=== PATIENT | male | born 2000 ===

== ENCOUNTER 2020-01-27 01:25 | Emergency (ER) | payer SELFPAY ==
[~2020-01-27] VITALS: Ht 170.2 cm; Wt 57.0 kg
[2020-01-27 01:35] VITALS: BP 122/78
--- NOTE | 2020-01-27 01:35 | NUR ---
PT BIB [facility] IN POLICE CUSTODY AFTER INGESTING AN UNKNOWN QUANTITY OF PSYCHEDELIC MUSHROOMS TONIGHT. PER EMS, PT ATTACKED GRANDMOTHER AND FATHER, CAUSING MULTIPLE INJURIES, AND CONTINUED TO GET COMBATIVE WITH POLICE. EN ROUTE TO HOSPITAL, PT WAS GIVEN 5 VERSED AND 5 HALDOL IM. PT ARRIVES TO [facility] ED IN 4 POINT RESTRAINTS, AND NONVERBAL TO QUESTIONS. UPON ARRIVAL TO ED, PT PLACED ON VS AND CARDIAC MONITORS. VSS. PT GCS OF 12. TECH AT BS FOR EKG. PT EDUCATED ON ER PROCESS AND POC BUT UNABLE TO VERBALIZE UNDERSTANDING AT THIS TIME. PER POLICE, PT MOTHER ON THE WAY. PT COVERED WITH A WARM BLANKET AT THIS TIME AND IS BEING MONITORED BY THIS RN.
--- NOTE | 2020-01-27 02:09 | NUR ---
Spoke with mother at this time, aware that pt is currently sleeping and closely monitored. Mother is going to go home at this time, we will call her for any problems or concerns, mothers phone number [phone]
[2020-01-27 02:21] LABS: ALBUMIN 3.9 g/dL (3.4-5.0); ANION GAP 5 mmol/L (5-15); CALCIUM 9.1 mg/dL (8.5-10.1); CHLORIDE 110 mmol/L (98-107)
[2020-01-27 02:23] LABS: BASOPHILS # (AUTO) 0.08 x10^3/uL (0-0.3); BASOPHILS % (AUTO) 1 % (0-1); EOSINOPHILS # (AUTO) 0.31 x10^3/uL (0-0.8); EOSINOPHILS % (AUTO) 2 % (1-7); LYMPHOCYTES # (AUTO) 1.13 x10^3/uL (1-6.1); LYMPHOCYTES % (AUTO) 9 % (22-44); MD NO; MEAN CORPUSCULAR HEMOGLOBIN 30.3 pg (27.5-34.5); MEAN CORPUSCULAR VOLUME 92.1 fL (81-97); MEAN PLATELET VOLUME 8.8 fL (7.4-10.4); MONOCYTES # (AUTO) 0.86 x10^3/uL (0-1.4); MONOCYTES % (AUTO) 7 % (2-9); NEUTROPHILS # (AUTO) 10.42 x10^3/uL (1.8-8.0); NEUTROPHILS % (AUTO) 81 % (42-75); PLATELET COUNT 147 x10^3/uL (130-400); RED BLOOD COUNT 4.66 x10^6/uL (4.38-5.82); RED CELL DISTRIBUTION WIDTH 13.3 % (9.4-14.8)
[2020-01-27 02:24] LABS: ALANINE AMINOTRANSFERASE 21 U/L (12-78); ALKALINE PHOSPHATASE 69 U/L (45-117); BILIRUBIN,TOTAL 0.4 mg/dL (0.2-1.0); CREATININE 1.05 mg/dL (0.7-1.3); TOTAL PROTEIN 6.9 g/dL (6.4-8.2)
[2020-01-27 02:27] LABS: SALICYLATE LEVEL < 1.7 mg/dL (2.8-20.0)
--- NOTE | 2020-01-27 02:45 | NUR ---
PT SLEEPING IN [facility] AT THIS TIME;
--- NOTE | 2020-01-27 03:43 | NUR ---
PT D/C WITH D/C SUMMARY IN CARE OF [facility]. PT AMBULATES WITH OFFICER WITH STEADY GAIT FOR D/C. PT PROVIDED PAIR OF CLEAN HOSPITAL SOCKS. PT AND [facility] DENY ANY OTHER NEEDS PERTAINING TO THIS VISIT.
== END 2020-01-27 03:46 | disposition home or self-care (01) ==
LOC: ED 01:55
DX: F16.22 Hallucinogen dependence with intoxication (principal); I45.10 Unspecified right bundle-branch block; R06.9 Unspecified abnormalities of breathing
CPT/HCPCS: 36415; 71045; 80053; 80307; 85025; 93005; 99285